=== PATIENT | female | born 1990 | race Caucasian/White ===

== ENCOUNTER 2025-05-06 21:49 | Inpatient (IN) | payer SELFPAY ==
[~2025-05-06] VITALS: Ht 157.5 cm; Wt 88.5 kg
[2025-05-06 21:59] VITALS: O2SAT 98
[2025-05-06 23:02] LABS: BASOPHILS % 0.5 % (0.0-2.0); EOSINOPHILS % 1.5 % (0.0-5.0); HEMATOCRIT. 40.6 % (36.0-48.0); HEMOGLOBIN. 13.5 g/dL (12.0-16.0); LYMPHOCYTES % 12.7 % (20.0-50.0); MEAN PLATELET VOLUME 9.8 fl (7.4-10.4); MONOCYTES % 3.2 % (2.0-8.0); NEUTROPHILS % 82.1 % (40.0-76.0); PLATELET 235 x1000/uL (130-400); RED BLOOD CELL COUNT 4.40 mill/uL (4.2-5.4); RED CELL DISTRIBUTION WIDTH 12.6 % (11.6-14.6)
[2025-05-06 23:14] LABS: CREATININE 0.7 mg/dL (0.6-1.0)
[2025-05-06 23:15] LABS: UREA NITROGEN BLOOD 11 mg/dL (9-23)
[2025-05-06 23:16] LABS: ASPARTATE AMINOTRANSFERASE 16 IU/L (<34)
[2025-05-06 23:17] LABS: BILIRUBIN DIRECT 0.1 mg/dL (<=3.0); BILIRUBIN TOTAL 0.5 mg/dL (0.1-1.0); HCG SCREEN NEGATIVE; PROTEIN TOTAL 7.4 g/dL (6.0-8.3)
[2025-05-07 00:05] LABS: CLARITY URINE CLOUDY (CLEAR); COLOR URINE YELLOW (YELLOW); GLUCOSE URINE NEGATIVE (NEGATIVE); KETONES URINE TRACE (NEGATIVE); LEUKOCYTE ESTERASE URINE 2+ (NEGATIVE); NITRITE URINE POSITIVE (NEGATIVE); OCCULT BLOOD URINE 3+ (NEGATIVE); PH URINE 5.5 (4.5-8.0); PROTEIN URINE 1+ (NEGATIVE); SPECIFIC GRAVITY URINE 1.028 (1.005-1.030); UROBILINOGEN URINE 1.0 E.U./dL (0.2-1.0)
[2025-05-07] MEDS: KETOROLAC 15MG/ML VIAL IM ONE (00:22)
[2025-05-07] MEDS: CEFTRIAXONE 2GM/50ML 50 ML IV ONE (01:53)
[2025-05-07] MEDS: ONDANSETRON HCL 4MG/2ML INJ IV ONE (02:29)
[2025-05-07 02:49] LABS: SQUAMOUS EPITHELIAL CELL URINE 1+ /lpf (RARE/1+)
[2025-05-07 02:51] LABS: BACTERIA URINE 3+; RBC URINE 15-25 /hpf (0-2); WBC URINE 15-25 /hpf (0-2)
[2025-05-07] MEDS ORDERED: DOCUSATE SODIUM 100MG CAPSULE PO PRN (03:00)
[2025-05-07] MEDS ORDERED: IPRATROPIUM/ALBUTEROL 0.5-3(2.5)MG/3ML NEB HHN PRN (03:00)
[2025-05-07] MEDS ORDERED: GUAIFENESIN 200MG/10ML SUGAR FREE UDC PO PRN (03:00)
[2025-05-07] MEDS ORDERED: ONDANSETRON HCL 4MG/2ML INJ IV PRN (03:00)
[2025-05-07] MEDS ORDERED: ACETAMINOPHEN 325MG TABLET PO PRN (03:00)
[2025-05-07] MEDS: SODIUM CHLORIDE 0.9% 1,000 ML IV SCH (03:13)
[2025-05-07 04:01] VITALS: BP 112/70; PULSE 61; RESP 18; TEMP 36.9184
[2025-05-07] MEDS: TAMSULOSIN HCL 0.4MG SR CAPSULE PO SCH (04:40)
[2025-05-07] MEDS: KETOROLAC 15MG/ML VIAL IV PRN (07:13)
[2025-05-07 07:49] VITALS: BP 112/66; PULSE 69; RESP 20
[2025-05-07 08:00] VITALS: BP 103/49; PULSE 68; RESP 16; TEMP 36.6; O2SAT 98
[2025-05-07 08:22] VITALS: BP 111/72; PULSE 84; RESP 21
[2025-05-07] MEDS: ACETAMINOPHEN 325MG TABLET PO PRN (10:45)
[2025-05-07 12:00] VITALS: BP 114/73; PULSE 81; RESP 15; TEMP 36.8; O2SAT 100
[2025-05-07] MEDS ORDERED: TAMS-54 MT (13:36)
[2025-05-07] MEDS ORDERED: SULF1TAB48 MT (13:36)
[2025-05-07] MEDS ORDERED: IBUP-2028 MT (13:36)
[2025-05-07 13:54] LABS: PHOSPHORUS 3.1 mg/dL (2.5-4.9)
[2025-05-07 16:00] VITALS: BP 109/63; PULSE 78; RESP 20; O2SAT 99
[2025-05-07] MEDS ORDERED: FAMOTIDINE 20MG TABLET PO SCH (21:00)
[2025-05-07] MEDS ORDERED: CEFTRIAXONE 1GM/50ML 50 ML IV SCH (23:00)
== END 2025-05-07 16:40 | disposition home or self-care (01) | DRG 463 ==
LOC: ER 21:49 → 3WST 05-07 02:13 → EDBEDREQTM 05-07 02:59 → EDBEDREQ 05-07 02:59 → ENRESERV 05-07 03:04
PROVIDERS: ADMIT Internal Medicine; ATTEND Internal Medicine
DX: N13.6 Pyonephrosis (principal); N20.1 Calculus of ureter; Z87.440 Personal history of urinary (tract) infections; Z87.442 Personal history of urinary calculi; Z88.5 Allergy status to narcotic agent; Z98.891 History of uterine scar from previous surgery
CPT/HCPCS: 36415; 73130; 74176; 80048; 80076; 81003; 84100; 84550; 84703; 85025; 87077; 87186; 99285; J0696; J1885; J2405